=== PATIENT | male | born 1960 | race Caucasian/White ===

== ENCOUNTER 2018-09-10 11:13 | Emergency (ER) | payer OTHER ==
[~2018-09-10] VITALS: Ht 170.2 cm; Wt 59.0 kg
[2018-09-10 11:39] LABS: URINE BILIRUBIN NEGATIVE (Negative); URINE BLOOD NEGATIVE (Negative); URINE CLARITY CLEAR; URINE COLOR YELLOW; URINE GLUCOSE-RANDOM* NEGATIVE (Negative); URINE KETONES NEGATIVE (Negative); URINE LEUKOCYTES-REFLEX NEGATIVE (Negative); URINE NITRITE-REFLEX NEGATIVE (Negative); URINE PROTEIN (DIPSTICK) NEGATIVE (Negative); URINE SPECIFIC GRAVITY 1.015 (1.005-1.035); URINE UROBILINOGEN 0.2 E.U./dl (0.2-1.0)
[2018-09-10 11:50] LABS: HEMATOCRIT 43.2 % (42.0-52.0); HEMOGLOBIN 14.9 gm/dL (14.0-18.0); MCH 34.3 pg (26.0-34.0); MCHC 34.5 g/dL (28.0-37.0); MCV 99.6 fL (80.0-100.0); PLATELET COUNT 257 thou/uL (150-400); RBC 4.34 mil/uL (4.50-6.00); RDW 14.1 % (10.5-14.5); WBC 5.6 thou/uL (4.0-11.0)
[2018-09-10] MEDS ORDERED: VITAMINC500 PO (11:55)
[2018-09-10] MEDS ORDERED: ASPIR 8181 MG PO (11:55)
[2018-09-10] MEDS ORDERED: LOPRESSOR100 M1 PO (11:55)
[2018-09-10] MEDS ORDERED: GLUCOSAMINE HC500 MG PO (11:56)
[2018-09-10 12:10] LABS: CALCIUM 9.4 mg/dL (8.5-10.1); CREATININE 0.8 mg/dL (0.7-1.3); POTASSIUM 3.9 mmol/L (3.5-5.1)
[2018-09-10 12:16] LABS: ALBUMIN 3.9 g/dL (3.4-5.0); DIRECT BILIRUBIN 0.2 mg/dL (<0.1-0.3); TOTAL BILIRUBIN 0.7 mg/dL (<0.1-1.0); TOTAL PROTEIN 7.1 g/dL (6.4-8.2)
[2018-09-10] MEDS ORDERED: NORFLEX100 MG PO (13:51)
[2018-09-10 14:04] LABS: ABSOLUTE NEUTROPHILS 2.1 thou/uL (1.4-8.2)
[2018-09-10 14:34] VITALS: BP 131/70
== END 2018-09-10 14:25 | disposition home or self-care (01) ==
LOC: ER 11:13
PROVIDERS: Emergency Medicine
DX: R10.9 Unspecified abdominal pain (principal); I10 Essential (primary) hypertension

== ENCOUNTER → 2018-09-21 | Outpatient (CLI) | payer OTHER ==
[~2018-09-21] MED LIST: ASPIR 8181 MG PO; GLUCOSAMINE HC500 MG PO; LOPRESSOR100 M1 PO; NORFLEX100 MG PO; VITAMINC500 PO
== END ==
LOC: CAT 09:31
DX: Z13.6 Encounter for screening for cardiovascular disorders (principal); E78.00 Pure hypercholesterolemia, unspecified; I25.10 Atherosclerotic heart disease of native coronary artery without angina pectoris

== ENCOUNTER → 2018-10-01 | Outpatient (CLI) | payer OTHER ==
[~2018-10-01] VITALS: Ht 170.2 cm; Wt 59.0 kg
[~2018-10-01] MED LIST changes: +ALEVE220 MG PO; +PLAVIX 75 MG TA75 M1 PO
[2018-10-01 07:36] VITALS: BP 189/108
== END | disposition home or self-care (01) ==
LOC: SPEC 06:54
DX: I70.212 Atherosclerosis of native arteries of extremities with intermittent claudication, left leg (principal); I70.1 Atherosclerosis of renal artery; I10 Essential (primary) hypertension; I25.10 Atherosclerotic heart disease of native coronary artery without angina pectoris; M54.5 Low back pain; G89.29 Other chronic pain; Z87.891 Personal history of nicotine dependence; Z79.82 Long term (current) use of aspirin; Z79.899 Other long term (current) drug therapy; Z98.890 Other specified postprocedural states

== ENCOUNTER 2018-11-12 05:40 | Inpatient (IN) | payer OTHER ==
[2018-11-02 08:44] LABS: HEMATOCRIT 43.9 % (42.0-52.0); MCH 33.7 pg (26.0-34.0); MCHC 34.1 g/dL (28.0-37.0); MCV 98.8 fL (80.0-100.0); PLATELET COUNT 256 thou/uL (150-400); RBC 4.44 mil/uL (4.50-6.00); WBC 4.6 thou/uL (4.0-11.0)
[2018-11-02 08:50] LABS: URINE BILIRUBIN NEGATIVE (Negative); URINE BLOOD NEGATIVE (Negative); URINE CLARITY CLEAR; URINE COLOR YELLOW; URINE GLUCOSE-RANDOM* NEGATIVE (Negative); URINE KETONES NEGATIVE (Negative); URINE LEUKOCYTES-REFLEX NEGATIVE (Negative); URINE NITRITE-REFLEX NEGATIVE (Negative); URINE PROTEIN (DIPSTICK) NEGATIVE (Negative); URINE SPECIFIC GRAVITY <= 1.005 (1.005-1.035); URINE UROBILINOGEN 0.2 E.U./dl (0.2-1.0)
[2018-11-02 08:55] LABS: ALBUMIN 3.9 g/dL (3.4-5.0); CALCIUM 9.2 mg/dL (8.5-10.1); CREATININE 0.8 mg/dL (0.7-1.3); POTASSIUM 4.3 mmol/L (3.5-5.1); TOTAL BILIRUBIN 0.5 mg/dL (<0.1-1.0); TOTAL PROTEIN 7.2 g/dL (6.4-8.2)
[2018-11-02 09:00] LABS: APTT 31.5 Seconds (24.5-32.8); PROTIME 10.3 Seconds (9.3-11.4)
[2018-11-02 09:28] LABS: ABSOLUTE NEUTROPHILS 1.6 thou/uL (1.4-8.2); PLATELET ESTIMATE NORMAL
--- NOTE | 2018-11-02 13:01 | EKG ---
[address] [address] [place] [address] ELECTROCARDIOGRAM REPORT Name: HERMINIO STERN Room #: PRE IN [facility]#: [id number] ������������������ Admission: ������������������ Attend Phys: Herminio Hameed MD Discharge: ������������������ Date of : 56 Report #: [id number] ����������������������������������������������������������������� [id number] THIS REPORT FOR: //name// [facility] Test Date: 2018-11-02 Test Time: 08:28:47 Pat Name: HERMINIO STERN Department: Room: Gender: Epic [place] Specialist: Edenilson [facility] : 1960 Requested By: Herminio Hameed Order Number: [id number] MD: Bruce Smith Measurements Intervals [place] Rate: 61 P: 0 MT: 150 QRS: -13 QRSD: 83 T: 30 QT: 400 QTc: 403 Interpretive Statements Sinus rhythm RSR' in V1 or V2, right VCD Compared to ECG 05/19/1991 13:07:00 RSR' in V1 or V2 now present Electronically Signed On 11-02-2018 13:00:58 CDT by Bruce Smith [email or web address] ��������������������������������������������� <ELECTRONICALLY SIGNED> ���������������������������������������� By: Bruce Smith MD, [facility] ��������������������������������������������� 11/02/18 1300 7 7 Bruce Smith MD, [facility] /EPI
[~2018-11-12] VITALS: Ht 170.2 cm; Wt 56.6 kg
[2018-11-12] VITALS (38 sets, daily range): BP systolic 88–161; BP diastolic 48–92
--- NOTE | ~2018-11-12 | O ---
[facility] [place] [address] OPERATIVE REPORT Name: HERMINIO STERN Room #: 150-1 ADM IN M.R.#: [id number] Admission: 11/12/18 ������������������ Attend Phys: Herminio Hameed MD Discharge: ������������������ Date of : 56 Report #: [id number] THIS REPORT FOR: //name// CC: Herminio Franco DATE OF SERVICE: 11/12/2018 PREOPERATIVE DIAGNOSIS: Left femoral artery stenosis. POSTOPERATIVE DIAGNOSIS: Left femoral artery stenosis. OPERATION: Left femoral endarterectomy with patch closure. SURGEON: Herminio Hameed MD WOMEN DESIGNER: Nuno Shaw. ANESTHESIA: General. INDICATIONS: The patient is a 58-year-old seen for Dr. Simpson. The patient had iliac artery stents placed, but he has a tight lesion in the left femoral artery. This was a large piece of calcium that nearly occludes the artery and the patient is symptomatic from this with left lower extremity claudication. FINDINGS AND TECHNIQUE: After general anesthesia was established, an incision was made in the left groin to expose the common deep and superficial femoral arteries. 10,000 units of heparin were given. The femoral vessels were occluded. The arteriotomy was made. The endarterectomy was performed without creating a distal flap. Neointima was inspected and all loose debris was removed. Tacking sutures were placed at the transition zones. When the endarterectomy was felt to be satisfactory, the arteriotomy was closed with running Prolene and a thin walled pericardial patch. The vessels were backbled and the artery was irrigated with heparinized saline and then flow was reestablished. Protamine was given to reverse the heparin. Hemostasis was ascertained in all areas. The wound was closed in layers and the patient was taken to the recovery area in good condition, having tolerated the procedure well. All counts reported as correct. ��������������������������������������������� ���������������������������������������� By: ��������������������������������������������� 1015 1030 Herminio Hameed MD /nt
[~2018-11-12 05:40] MED LIST changes: +CENTRUM SILVER1 EAC4 PO; +CRESTOR5 MG PO; +LOPRESSOR50 PO; +LOSARTAN POTAS100 MG PO
[2018-11-13] VITALS (14 sets, daily range): BP systolic 91–162; BP diastolic 55–80
== END 2018-11-13 11:40 | disposition home or self-care (01) | DRG 254 ==
LOC: TBA 05:40 → PRE 05:58 → ICU 13:17
PROVIDERS: ADMIT Surgery Vascular Surgery
PROC: 04CL0ZZ Extirpation of Matter from Left Femoral Artery, Open Approach (ICD-10-PCS; principal; 2018-11-12)
PROC: 04UL0KZ Supplement Left Femoral Artery with Nonautologous Tissue Substitute, Open Approach (ICD-10-PCS; principal; 2018-11-12)
DX: I70.292 Other atherosclerosis of native arteries of extremities, left leg (principal); Z79.899 Other long term (current) drug therapy; Z79.82 Long term (current) use of aspirin
CPT/HCPCS: 10078; 50010; 50101

== ENCOUNTER → 2019-11-11 | Outpatient (CLI) | payer OTHER | LOC: SJCVCIMAG 11:02 | PROVIDERS: ATTEND Internal Medicine Cardiovascular Disease | DX: I65.23 Occlusion and stenosis of bilateral carotid arteries (principal); R09.89 Other specified symptoms and signs involving the circulatory and respiratory systems; I10 Essential (primary) hypertension; E78.00 Pure hypercholesterolemia, unspecified ==

== ENCOUNTER → 2020-06-01 | Outpatient (CLI) | payer OTHER | LOC: SJCVCIMAG 08:14 | PROVIDERS: ATTEND Internal Medicine Cardiovascular Disease | DX: I73.9 Peripheral vascular disease, unspecified (principal); M79.604 Pain in right leg; M79.605 Pain in left leg; Z95.828 Presence of other vascular implants and grafts; Z87.891 Personal history of nicotine dependence ==

== ENCOUNTER → 2020-12-28 | Outpatient (CLI) | payer OTHER | LOC: CAT 07:42 | PROVIDERS: ATTEND Nurse Practitioner | DX: Z12.2 Encounter for screening for malignant neoplasm of respiratory organs (principal); J84.10 Pulmonary fibrosis, unspecified; J43.9 Emphysema, unspecified; I70.0 Atherosclerosis of aorta; M47.814 Spondylosis without myelopathy or radiculopathy, thoracic region; M41.84 Other forms of scoliosis, thoracic region; Z87.891 Personal history of nicotine dependence ==

== ENCOUNTER → 2021-03-15 | Outpatient (CLI) | payer OTHER | LOC: SJCVCIMAG 07:51 | PROVIDERS: ATTEND Internal Medicine Cardiovascular Disease | DX: I08.1 Rheumatic disorders of both mitral and tricuspid valves (principal); I65.23 Occlusion and stenosis of bilateral carotid arteries; I25.10 Atherosclerotic heart disease of native coronary artery without angina pectoris; Z87.891 Personal history of nicotine dependence; Z72.89 Other problems related to lifestyle; Z79.82 Long term (current) use of aspirin; Z79.899 Other long term (current) drug therapy ==